=== PATIENT | male | born 1965 | race American Indian/Alaskan Native ===

== ENCOUNTER 2016-07-03 12:08 | Outpatient (CLI) | payer MEDICARE, OTHER ==
[2016-07-03 12:28] LABS: Basophils % (Auto) 0.6 % (0.0-1.8); Eosinophils % (Auto) 0.8 % (0.0-4.3); Hematocrit 33.9 % (35.5-45.6); Hemoglobin 11.2 gm/dl (11.8-15.2); Mean Corpuscular HGB Conc 33 % (32-34); Mean Corpuscular Hemoglobin 32 pg (28-32); Mean Corpuscular Volume 96 fl (84-94); Platelet Count 115 K/mm3 (140-440); Red Blood Count 3.55 M/mm3 (3.65-5.03); White Blood Count 6.4 K/mm3 (4.5-11.0)
[2016-07-03 12:52] LABS: Alanine Aminotransferase 32 units/L (7-56); Albumin/Globulin Ratio 1.5 %; Alkaline Phosphatase 70 units/L (35-129); Bilirubin,Total 0.2 mg/dL (0.1-1.2); Blood Urea Nitrogen 18 mg/dL (9-20); Calcium 9.6 mg/dL (8.4-10.2); Carbon Dioxide 26 mmol/L (22-30); Chloride 105.1 mmol/L (98-107); Glucose 89 mg/dL (75-100); Potassium 4.6 mmol/L (3.6-5.0); Sodium 144 mmol/L (137-145); Total Protein 6.6 g/dL (6.3-8.2)
[2016-07-03 12:56] LABS: Anion Gap 18 mmol/L
== END 2016-07-03 12:09 | disposition home or self-care (01) ==
LOC: LAB 12:08
PROVIDERS: ATTEND Psychiatry & Neurology Child & Adolescent Psychiatry
DX: F25.0 Schizoaffective disorder, bipolar type (principal)
CPT/HCPCS: 36415; 80053; 85025